=== PATIENT | male | born 1975 | race Caucasian/White ===

== ENCOUNTER → 2016-09-05 | Day surgery (SDC) | payer OTHER ==
[2016-09-04 15:12] VITALS: BMI 31.3
[~2016-09-05] MED LIST: GLYCOPYRROLATE 0.2 MG/ML 2 ML VIAL ONE; LACTATED RINGERS 1,000 ML IV SCH; LIDOCAINE 1% 20 ML VIAL (10MG/ML) FOR IV START INTRADERMA PRN; LIDOCAINE 1% INJ 10MG/ML (20 ML MDV) ONE; PROPOFOL 10 MG/ML 20 ML VIAL IV ONE
[2016-09-05 13:48] VITALS: RESP 16; TEMP 98.4
--- NOTE | 2016-09-05 15:29 | P.GSHP ---
History of Present Illness H&P Date: 09/05/16 Chief Complaint: GERD, GI bleed This a 41-year-old male who presents today for EGD colonoscopy. He's had issues with GERD and GI bleed. His recent admission to [facility] a CAT scan was performed which showed possible thickening of the cecum. - Constitutional Constitutional: Reports as per HPI Past Medical History Past Medical History: GERD/Reflux Additional Past Medical History / Comment(s): HAVING ABD PAIN WITH BLOODY AND MUCUS SMALL LS STOOLS,HX HEMORRHOIDS,CHRONIC BACK PAIN,IRREG HR-THINKS R/T TO PANIC ATTACKS,BLURRED VISION TRYING TO SEE UP CLOSE History of Any Multi-Drug Resistant Organisms: None Reported Past Surgical History: Orthopedic Surgery Additional Past Surgical History / Comment(s): RT KNEE ARTHROSCOPY,GLAUCOMA TX CHANEL EYES Past Anesthesia/Blood Transfusion Reactions: No Reported Reaction Additional Past Anesthesia/Blood Transfusion Reaction / Comment(s): UNK FAMILY HX Past Psychological History: ADD/ADHD, Anxiety, Bipolar, Depression, Panic Disorder, PTSD Smoking Status: Current every day smoker Past Alcohol Use History: None Reported Additional Past Alcohol Use History / Comment(s): SMOKES 1PPD, FOR PAST 28 YRS Past Drug Use History: None Reported - Past Family History Mother Family Medical History: No Reported History Medications and Allergies Home Medications Medication Instructions Recorded Confirmed Type Gabapentin [Gabapentin] 800 mg PO QID 12/19/15 09/05/16 History Morphine Sulfate ER [Ms Contin 30 mg PO BID 12/19/15 09/05/16 History 60Mg] oxyCODONE-APAP 5-325MG [Percocet 1 each PO 5XD PRN 12/19/15 09/05/16 History 5-325 mg] Carisoprodol [Soma] 350 mg PO BID 09/04/16 09/05/16 History Ondansetron [Zofran] 4 mg PO Q12HR PRN 09/04/16 09/05/16 History PARoxetine [Paxil] 20 mg PO QAM 09/04/16 09/05/16 History QUEtiapine [SEROquel] 100 mg PO HS 09/04/16 09/05/16 History Allergies Allergy/AdvReac Type Severity Reaction Status Date / Time ibuprofen [From Motrin] Allergy Swelling,ra Verified 09/05/16 14:03 sh Surgical - Exam Vital Signs Temp Pulse Resp BP Pulse Ox 98.4 F 86 16 111/75 96 09/05/16 13:47 09/05/16 13:47 09/05/16 13:47 09/05/16 13:47 09/05/16 13:47 - General well developed, no distress - Eyes PERRL - ENT normal pinna - Neck no masses - Respiratory normal expansion - Cardiovascular Rhythm: regular - Abdomen Abdomen: soft, non tender Assessment and Plan Plan: GERD, GI bleed. We'll perform EGD and colonoscopy.
--- NOTE | 2016-09-05 15:48 | P.OP ---
Date of Procedure: 09/05/16 Preoperative Diagnosis: GI bleed GERD Postoperative Diagnosis: Antral gastritis No evidence of hiatal hernia Mild rectal inflammation pathology pending Procedure(s) Performed: Colonoscopy EGD Anesthesia: MAC Surgeon: Jaxon Aguero Pathology: other (Antrum, rectum) Condition: stable Disposition: PACU Description of Procedure: The patient's placed on the endoscopy table in the lateral position. He received IV sedation. The gastric scope some placed oropharynx and passed into the esophagus and into the stomach. Scope was then placed through the pylorus. The first and second portion of the duodenum appeared normal. The scope was then brought back and the antrum and this appeared mildly inflamed. A biopsies performed. Scope was then retroflexed and the remainder of the stomach appeared normal. There was no hiatal hernia. The GE junction was at 40 cm. The distal esophagus and proximal esophagus appeared normal. The scope was withdrawn for patient. Next digital rectal exam was performed which revealed internal and Hemorrhoids. The flexible colonoscope was then placed patient anus and passed throughout the entire colon. The ileocecal valve was visualized. There is no evidence of any cecal thickening or tumor or mass in the cecum. The cecum looked entirely normal. The scope was then withdrawn in the ascending colon, transverse colon and descending colon and sigmoid colon appeared normal. The scope was then brought back the rectum and there was some mucosal inflammation this was biopsied. Scope was then withdrawn from the patient.
[2016-09-05 16:33] VITALS: BP 118/79; PULSE 85
== END ==
LOC: ORWHC2ENDO 13:14
PROVIDERS: ATTEND Surgery
DX: K29.50 Unspecified chronic gastritis without bleeding (principal); K62.89 Other specified diseases of anus and rectum; K64.8 Other hemorrhoids; F17.200 Nicotine dependence, unspecified, uncomplicated; G89.29 Other chronic pain; M54.9 Dorsalgia, unspecified; F41.9 Anxiety disorder, unspecified; F90.9 Attention-deficit hyperactivity disorder, unspecified type; F31.9 Bipolar disorder, unspecified; F41.0 Panic disorder [episodic paroxysmal anxiety]; F43.10 Post-traumatic stress disorder, unspecified; Z79.891 Long term (current) use of opiate analgesic; Z79.899 Other long term (current) drug therapy; Z88.6 Allergy status to analgesic agent
CPT/HCPCS: 45380; 43239; J2001; J2704; 88305; 88342

== ENCOUNTER → 2016-09-06 | Outpatient (CLI) | payer OTHER ==
--- NOTE | 2016-09-07 08:17 | NM ---
EXAMINATION TYPE: NM hepatobiliary wo EF DATE OF EXAM: 09/06/2016 5:20 PM COMPARISON: NONE HISTORY: Right upper quadrant pain TECHNIQUE: After the intravenous administration of 5.5 mCi Tc 99m Mebrofenin hepatobiliary scintigrap hy is performed. Immediate images post injection. FINDINGS: Small bowel activity is noted to minutes. The gallbladder was never visualized. IMPRESSION: FAILURE TO VISUALIZE THE GALLBLADDER MAY REPRESENT CYSTIC DUCT OBSTRUCTION OR NONFUNCTIONING GALLBLAD SIVAN.
== END | disposition home or self-care (01) ==
LOC: RADNMMAIN 14:47
PROVIDERS: ATTEND Surgery
DX: K81.1 Chronic cholecystitis (principal)
CPT/HCPCS: 78226; A9537

== ENCOUNTER → 2016-10-12 | Outpatient (CLI) | payer OTHER ==
--- NOTE | 2016-10-13 11:11 | MR ---
MR thoracic spine without contrast HISTORY: Radiculopathy, back pain Multiplanar multisequence imaging obtained through the thoracic spine Thoracic vertebral bodies show preserved height, alignment, and bone marrow signal. Disc spaces are m aintained, there is multilevel Schmorl's node formation. Thoracic cord signal is normal. There is no significant spinal stenosis, foraminal encroachment, or evident disc herniation. T2 hyperintense focus present in the right lobe of the liver measuring 13 mm. IMPRESSION: No abnormality evident to account for patient's symptoms. Additional findings above.
== END | disposition home or self-care (01) ==
LOC: RADMRIMAIN 15:38
PROVIDERS: ATTEND Pain Medicine Interventional Pain Medicine
DX: M54.14 Radiculopathy, thoracic region (principal)
CPT/HCPCS: 72146

== ENCOUNTER → 2019-02-04 | Outpatient (CLI) | payer OTHER ==
[2019-02-04 17:59] LABS: Basophils # (A) 0.1 k/uL (0-0.2); Basophils % (A) 1 %; Eosinophils # (A) 0.2 k/uL (0-0.7); Eosinophils % (A) 5 %; HCT 41.1 % (39.0-53.0); HGB 13.1 gm/dL (13.0-17.5); Lymphocytes # (A) 1.7 k/uL (1.0-4.8); Lymphocytes % (A) 35 %; MCH 27.6 pg (25.0-35.0); MCHC 31.8 g/dL (31.0-37.0); MCV 86.8 fL (80.0-100.0); Mean Platelet Volume 5.9; Monocytes # (A) 0.3 k/uL (0-1.0); Monocytes % (A) 6 %; Neutrophils # (A) 2.4 k/uL (1.3-7.7); Neutrophils % (A) 51 %; Platelet Count 181 k/uL (150-450); RBC 4.74 m/uL (4.30-5.90); RDW 12.6 % (11.5-15.5); WBC 4.7 k/uL (3.8-10.6)
[2019-02-05 00:44] LABS: ALT 32 U/L (10-49); AST 28 U/L (14-35); African American GFR (CKD) 104.1 (60.0-200.0); Alkaline Phosphatase 81 U/L (41-126); Bilirubin, Conjugated <0.20 mg/dL (0.20-0.40); Calcium 9.3 mg/dL (8.7-10.3); Carbon Dioxide 25.1 mmol/L (21.6-31.8); Chloride 106 mmol/L (96-109); Chol/HDL Ratio 4.55; Cholesterol 232 mg/dL (0-200); Glucose 91 mg/dL (70-110); LDL Cholesterol,Calculated 159.4 mg/dL (0.0-131.0); Potassium 4.6 mmol/L (3.5-5.5); Sodium 141 mmol/L (135-145); Total Bilirubin 0.3 mg/dL (0.2-1.2); Total Protein 6.6 g/dL (6.2-8.2)
[2019-02-05 01:14] LABS: Hemoglobin A1C 5.5 % (4.0-6.0)
== END | disposition home or self-care (01) ==
LOC: LABWHC1 17:18
PROVIDERS: ATTEND Psychiatry & Neurology Psychiatry
DX: F33.3 Major depressive disorder, recurrent, severe with psychotic symptoms (principal)
CPT/HCPCS: 36415; 80053; 80061; 82248; 83036; 84439; 84443; 85025